=== PATIENT | female | born 2005 | race Caucasian/White ===

== ENCOUNTER 2024-06-30 16:50 | Emergency (ER) | payer BC, SELFPAY ==
[2024-06-30 17:03] VITALS: BP 124/71
[2024-06-30 17:17] LABS: % Basophils 0.5 % (0-2); % Eosinophils 0.1 % (0-6); % Immature Granulocytes 0.5 % (0-0.5); % Lymphocytes 11.7 % (20.5-51.1); % Monocytes 8.4 % (1.7-9.3); % Neutrophils 78.8 % (42.2-75.2); Absolute Basophils 0.1 10^3/uL (0-0.2); Absolute Immature Granulocytes 0.1 10^3/uL (0-0.05); Absolute Lymphocytes 2.3 10^3/uL (1.2-3.4); Absolute Monocytes 1.6 10^3/uL (0.1-0.6); Absolute Neutrophils 15.4 10^3/uL (1.4-6.5); Hematocrit 36.3 % (37.0-47.0); Hemoglobin 12.5 g/dL (12.0-16.0); Mean Corp Hgb Conc. 34.4 g/dL (33.0-37.0); Mean Corpuscular Hgb 27.2 pg (27.0-31.0); Mean Corpuscular Volume 79.1 fL (81.0-99.0); Mean Platelet Volume 9.5 fL (7.4-10.4); Nucleated Red Blood Cells % 0 %; Platelet Count 289 10^3/uL (130-400); Red Blood Cell Count 4.59 10^6/uL (4.20-5.40); Red Cell Dist. Width 13.7 % (11.5-14.5); White Blood Cell Count 19.5 10^3/uL (4.8-10.8)
[2024-06-30 17:39] LABS: ALT (SGPT) 12 U/L (0-35); AST (SGOT) 22 U/L (14-36); Albumin 4.8 g/dl (3.5-5.0); Alkaline Phosphatase 89 U/L (38-126); Blood Urea Nitrogen 8 mg/dl (7-17); Calcium 9.8 mg/dl (8.4-10.2); Carbon Dioxide 22 mmol/L (22-30); Chloride 102 mmol/L (98-107); Glucose 89 mg/dl (70-99); Potassium 4.1 mmol/L (3.5-5.1); Sodium 139 mmol/L (135-145); Total Bilirubin 0.9 mg/dl (0.2-1.3); Total Protein 7.6 g/dl (6.3-8.2); eGFR > 60.00
[2024-06-30 17:48] LABS: COVID-19 Antigen Negative (Negative)
--- NOTE | 2024-06-30 18:36 | ED.GENMED ---
History of Present Illness
<Issac Charlton PA-C - Last Filed: 06/30/24 22:09>
General
Chief Complaint: Fever
Time Seen by Provider: 06/30/24 17:40
History of Present Illness
History of Present Illness:
18-year-old female with no significant past medical history presents to the emergency department for evaluation of fever, headache, and neck stiffness beginning yesterday. She reports persistent vomiting since yesterday as well. Was seen in urgent
care earlier today in [facility] (she attends [employer] in [place]) at which time she reportedly had a negative COVID, flu, and strep test. Urinalysis was done but the patient is unaware of the results. She was reportedly told to come to the
emergency department for further workup of possible meningitis. She denies any coughing, nasal congestion, abdominal pain.
Review of Systems
<Issac Charlton PA-C - Last Filed: 06/30/24 22:09>
Review of Systems
Allergies reviewed?: Yes
All Other Systems: ROS reviewed and negative except as documented in HPI and ROS
Phy Exam
<Issac Charlton PA-C - Last Filed: 06/30/24 22:09>
Physical Exam
Physical Exam:
GEN: Well appearing, NAD, WDWN
Eyes: PERRLA, EOMs intact, no scleral icterus
HENT: NCAT, oral mucosa moist, moderate bilateral cervical and tonsillar adenopathy. Mildly meningitic with neck stiffness to flexion
Lungs: CTAB, no wheezes, rales, rhonchi, normal chest wall excursion
Cardiac: Tachycardic and regular, no M/R/G, no peripheral edema. Radial pulses 2+ bilat
Abdomen: S, NT, ND, NABS, no masses or hepatosplenomegaly
Neuro: AO x 3, no focal deficits to BUE/BLE, normal sensation throughout
MSK: No gross deformity or ecchymosis. No edema. No digital clubbing
Skin: No rashes, petechiae. Normal color, no pallor or jaundice.
Psych: Calm, cooperative, proper hygiene
Course
<Issac Charlton PA-C - Last Filed: 06/30/24 22:09>
Orders/Labs/Results
Orders:
Orders
06/30/24 17:09
COVID-19 Antigen Urgent
Source: Nasal Swab
Complete Blood Count/With Diff Urgent
Comprehensive Metabolic Panel Urgent
Monotest Urgent
Comment: ADD ON
Influenza A+B Rapid Molecular Urgent
MARJAN Source: Nasal Swab
Specimen Description:
06/30/24 18:35
Add On- LAB Urgent
Tests Added?: Monotest
0.9% Sodium Chloride 1000 ml [Nss] 1,000 ml IV BOLUS
Acetaminophen 1000MG/100Ml [Ofirmev] 1,000 mg in 100 ml IV ONCE
Acetaminophen IV Indication:: ED Narcotic Naive Pt-ONCE
Ondansetron Injectable [Zofran] 4 mg IV NOW STA
06/30/24 19:57
Urinalysis Reflex To Culture Urgent
Date Specimen was Collected: 06/30/24
Time Specimen was Collected: 19:49
06/30/24 20:44
CSF Cell Count Urgent
Date Specimen was Collected: 06/30/24
Time Specimen was Collected: 20:37
CSF Glucose [Spinal Fluid Glucose] Urgent
Date Specimen was Collected: 06/30/24
Time Specimen was Collected: 20:37
CSF Protein [Spinal Fluid Protein] Urgent
Date Specimen was Collected: 06/30/24
Time Specimen was Collected: 20:37
CSF Culture with Gram Stain Urgent
MARJAN Source: Csf
Specimen Description:
Date Specimen was Collected: 06/30/24
Time Specimen was Collected: 20:37
Meningitis Panel, CSF by PCR Urgent
MARJAN Source: Csf
Specimen Description:
06/30/24 22:08
Ketorolac [Toradol] 15 mg IV NOW STA
Abnormal Lab Results
06/30/24 06/30/24
17:09 19:57
WBC 19.5 H 10^3/uL
(4.8-10.8)
Hct 36.3 L %
(37.0-47.0)
MCV 79.1 L fL
(81.0-99.0)
Abs Immat Gran (auto) 0.1 H 10^3/uL
(0-0.05)
Absolute Neuts (auto) 15.4 H 10^3/uL
(1.4-6.5)
Absolute Monos (auto) 1.6 H 10^3/uL
(0.1-0.6)
Neutrophils % 78.8 H %
(42.2-75.2)
Lymphocytes % 11.7 L %
(20.5-51.1)
Urine Ketones 3+ A
(Negative)
06/30/24 17:09
06/30/24 17:09
Vital Signs
Initial and Last Documented VS:
Initial Vital Signs
Temp Pulse Resp BP Pulse Ox
99.5 F 107 20 124/71 100
06/30/24 17:03 06/30/24 17:03 06/30/24 17:03 06/30/24 17:03 06/30/24 17:03
Last Documented Vital Signs
Temp Pulse Resp BP Pulse Ox
99.5 F 96 21 111/71 97
06/30/24 17:03 06/30/24 21:45 06/30/24 21:45 06/30/24 21:00 06/30/24 21:45
Brennonlt;Ivan Olsen DO - Last Filed: 06/30/24 20:09>
Orders/Labs/Results
Orders:
Orders
06/30/24 17:09
COVID-19 Antigen Urgent
Source: Nasal Swab
Complete Blood Count/With Diff Urgent
Comprehensive Metabolic Panel Urgent
Monotest Urgent
Comment: ADD ON
Influenza A+B Rapid Molecular Urgent
MARJAN Source: Nasal Swab
Specimen Description:
06/30/24 18:35
Add On- LAB Urgent
Tests Added?: Monotest
0.9% Sodium Chloride 1000 ml [Nss] 1,000 ml IV BOLUS
Acetaminophen 1000MG/100Ml [Ofirmev] 1,000 mg in 100 ml IV ONCE
Acetaminophen IV Indication:: ED Narcotic Naive Pt-ONCE
Ondansetron Injectable [Zofran] 4 mg IV NOW STA
06/30/24 19:57
Urinalysis Reflex To Culture Urgent
Date Specimen was Collected: 06/30/24
Time Specimen was Collected: 19:49
06/30/24 20:44
CSF Cell Count Urgent
Date Specimen was Collected: 06/30/24
Time Specimen was Collected: 20:37
CSF Glucose [Spinal Fluid Glucose] Urgent
Date Specimen was Collected: 06/30/24
Time Specimen was Collected: 20:37
CSF Protein [Spinal Fluid Protein] Urgent
Date Specimen was Collected: 06/30/24
Time Specimen was Collected: 20:37
CSF Culture with Gram Stain Urgent
MARJAN Source: Csf
Specimen Description:
Date Specimen was Collected: 06/30/24
Time Specimen was Collected: 20:37
Meningitis Panel, CSF by PCR Urgent
MARJAN Source: Csf
Specimen Description:
06/30/24 22:08
Ketorolac [Toradol] 15 mg IV NOW STA
Abnormal Lab Results
06/30/24 06/30/24
17:09 19:57
WBC 19.5 H 10^3/uL
(4.8-10.8)
Hct 36.3 L %
(37.0-47.0)
MCV 79.1 L fL
(81.0-99.0)
Abs Immat Gran (auto) 0.1 H 10^3/uL
(0-0.05)
Absolute Neuts (auto) 15.4 H 10^3/uL
(1.4-6.5)
Absolute Monos (auto) 1.6 H 10^3/uL
(0.1-0.6)
Neutrophils % 78.8 H %
(42.2-75.2)
Lymphocytes % 11.7 L %
(20.5-51.1)
Urine Ketones 3+ A
(Negative)
06/30/24 17:09
06/30/24 17:09
Vital Signs
Initial and Last Documented VS:
Initial Vital Signs
Temp Pulse Resp BP Pulse Ox
99.5 F 107 20 124/71 100
06/30/24 17:03 06/30/24 17:03 06/30/24 17:03 06/30/24 17:03 06/30/24 17:03
Last Documented Vital Signs
Temp Pulse Resp BP Pulse Ox
99.5 F 96 21 111/71 97
06/30/24 17:03 06/30/24 21:45 06/30/24 21:45 06/30/24 21:00 06/30/24 21:45
Procedures
<Issac Charlton PA-C - Last Filed: 06/30/24 22:09>
Lumbar Puncture
Indication for procedure:: R/O meningitis
Procedure completed by: Issac Charlton PA-C
Consent form signed: Yes
Anesthesia/sedation: 1% Lidocaine
Preparation: cleaned with Betadine
Position: sitting
Needle Size: 18 gauge
Needle Type: Lumbar Needle
Number of attempts: 2
Dressing applied to puncture site: bandaid
Complications: none
Additional information:
8mL clear CSF obtained
<Issac Charlton PA-C - Last Filed: 06/30/24 22:09>
MDM/Problems Addressed
MDM/Problems Addressed:
LP was performed ultimately due to the lack of an alternative diagnosis given the patient's fever and neck stiffness but this was reassuring with no sign of meningitis. Likely self-limited viral syndrome, discussed supportive care
<Issac Charlton PA-C - Last Filed: 06/30/24 22:09>
*Critical Care Note
Total Time (30-74mins, 75-104mins- exclusive of procedures): Not Applicable
ED Attending Note
<Issac Charlton PA-C - Last Filed: 06/30/24 22:09>
-
Portions of this chart may have been created with voice recognition software.� Occasional wrong word or��sound alike� substitutions may have occurred due to the inherent limitations of voice recognition software.
<Ivan Olsen, - Last Filed: 06/30/24 20:09>
ED Attending Note
Patient seen and examined by attending physician: Yes
I performed the substantive portion of visit, reviewed & personally made and approve the management plan that is documented in note by myself or ZAINAB.: Yes
ED Attending Note:
I agree with Raji's note.
Patient began feeling unwell yesterday. She began with nausea, vomiting and headache. She now has significant neck stiffness. When asked what is the 1 thing that bothers her the most she states is the stiffness in her neck. She also has a
headache. She has subjective fever yesterday but did not measure her temperature. She has not noticed a rash
General: Awake, Alert, Oriented X3. Appears uncomfortable but in no distress
Vitals: unremarkable
Head: Atraumatic
Eyes: Pupils equal, EOMI
Throat: Airway intact, no exudates
Neck: Trachea midline, mild nuchal rigidity
Lungs: Clear and equal b/l
Heart: Regular rate, no murmurs
Abd: Soft, Nontender, No pulsatile mass
Neuro: Nonfocal
Skin: Warm, dry, no rash noted
Extremities: pulses equal b/l, no edema
Labs show an elevated white blood cell count of 19.5. Chemistries are unremarkable. Urine is pending. COVID and monoscreen are negative.
Patient will require a lumbar puncture to exclude bacterial meningitis.
Discharge Plan
Departure
Patient Disposition: Home (Routine Discharge)
Date of Disposition: 06/30/24
Time of Disposition: 22:07
Patient with high blood pressure during this ER visit?: No
Discharge Problem:
Acute viral syndrome
Instructions: Viral Syndrome (DC)
Referrals:
NONE,* [Family Provider] -
Interventions
Interventions:
*Risk Screen - Suicide Last Done: 06/30/24 19:42
*General Assessment Last Done: 06/30/24 19:42
*Neglect/Abuse Screening Last Done: 06/30/24 19:42
ED- Fall Risk Assessment Last Done: 06/30/24 19:42
*ED COVID-19 Vaccine History Last Done: 06/30/24 19:42
ED- Neurological Assessment Last Done: 06/30/24 19:40
ED-Skin Assessment Last Done: 06/30/24 19:40
Discharge Date and Time
Print Language: [id number]
[2024-06-30] MEDS: NSS 1000 IV (18:54)
[2024-06-30] MEDS: ZOFRAN 4 MG IV (18:54)
[2024-06-30] MEDS: OFIRMEV 100 IV (18:55)
[2024-06-30 19:20] LABS: Monotest Negative (Negative)
[2024-06-30 19:57] VITALS: BP 120/85
[2024-06-30 20:00] VITALS: BP 117/83
[2024-06-30 20:12] LABS: Urine Albumin Negative (Neg - Trace); Urine Bilirubin Negative (Negative); Urine Character Clear (Clear); Urine Color Yellow; Urine Glucose Negative (Negative); Urine Ketone 3+ (Negative); Urine Leukocyte Negative (Negative); Urine Nitrite Negative (Negative); Urine Occult Blood Negative (Negative); Urine Specific Gravity 1.025 (<1.030); Urine Urobilinogen 1+ (Neg - 1+)
[2024-06-30 20:24] VITALS: BP 118/69
[2024-06-30 21:00] VITALS: BP 111/71
[2024-06-30 21:19] LABS: Spinal Fluid Glucose 58 mg/dl (40-70); Spinal Fluid Protein 20 mg/dl (12-60)
[2024-06-30 21:50] LABS: CSF Clarity Clear; CSF Color Colorless; CSF Tube # 1; Red Cell Count/CSF 52 mm^3; White Cell Count/CSF 1 mm^3 (0-5)
[2024-06-30 22:00] VITALS: BP 114/81
[2024-06-30] MEDS: TORADOL 15 MG IV (22:10)
== END 2024-06-30 22:18 | disposition home or self-care (01) ==
LOC: EMR 16:50
PROVIDERS: Physician Assistant; EMERGENCY PHYSICIAN Emergency Medicine
DX: B34.9 Viral infection, unspecified (principal)
CPT/HCPCS: 62270; 99285; 96374; 96375; 96361; 80053; 81003; 82945; 84157; 85025; 86308; 87015; 87070; 87205; 87483; 87502; 87811; 89051